=== PATIENT | male | born 1960 | race Two or more races ===

== ENCOUNTER 2024-08-02 12:16 | Emergency (ER) | payer OTHER, SELFPAY ==
[2024-08-02 12:21] VITALS: BP 210/100; PULSE 112; TEMP 36.8; O2SAT 95; BMI 30.4
--- NOTE | 2024-08-02 12:24 | CT_ITS ---
The [address] [address] Patient Name: GISELE SON MRN: [facility]:[id number] date: 1960 Sex: M Assigned Patient Location: ER Current Patient Location: ED.MAIN Accession/Order Number: [id number] Exam Date: 08/02/2024 13:04 Report Date: 08/02/2024 14:00 At the request of: KEILA DAVISON Procedure: CT head/brain wo con EXAMINATION: CT head/brain wo con HISTORY: head injury COMPARISON: None. TECHNIQUE: CT head without intravenous contrast. Dose reduction techniques were achieved by using: automated exposure control and/or adjustment of mA and /or kV according to patient size and/or use of iterative reconstruction technique. FINDINGS: The ventricles and sulci are within normal limits in size and configuration for age. There is no evidence for acute intracranial hemorrhage. There are no foci of abnormal parenchymal attenuation. There is no mass effect or midline shift. There are no abnormal extraaxial fluid collections. Left posterior scalp laceration and soft tissue hematoma. CT/CT head/brain wo con IMPRESSION: Negative for acute intracranial hemorrhage or acute intracranial process. Left posterior scalp soft tissue hematoma and laceration. Electronically authenticated by: EMILY ADAMS Date: 08/02/2024 14:00
--- NOTE | 2024-08-02 12:25 | ED.GENADUL1 ---
HPI HPI - General Adult General Chief complaint: Wound/Laceration Stated complaint: FALL HEAD INJURY Time Seen by Provider: 08/02/24 12:22 Mode of arrival: walk-in History of Present Illness HPI narrative: 63-year-old male presents to the emergency department for an injury to his head. He slipped on ice and fell backwards hitting the back of his head and he sustained a laceration. This happened about an hour and a half ago. No LOC or vomiting and no neck pain. No other injury was sustained. He has had a tetanus shot within the last 10 years. Related Data Home Medications ?Medication ?Instructions ?Recorded ?Confirmed lisinopril 10 mg tablet 10 mg PO DAILY 08/02/24 08/02/24 Allergies Allergy/AdvReac Type Severity Reaction Status Date / Time No Known Drug Allergies Allergy Verified 08/02/24 12:21 Opioid HPI Opioid Management Most Recent Opioid Data: No Data to Display Review of Systems ROS Narrative A ten point review of systems is negative except as noted above. PFSH PFSH Social History Little interest or pleasure in doing things: not at all Feeling down, depressed, or hopeless: not at all Exam Narrative Exam Narrative: Nurses note and vital signs reviewed and patient is not hypoxic. General: The patient appears in no apparent distress. Patient is resting comfortably on cart. Skin: Warm, dry, no pallor noted. There is no rash noted. Head: Normocephalic, dried blood present on the back of his head. He has a curved laceration 2 centimeters in length on the occiput with small hematoma. No active bleeding. Cervical spine nontender. Eye: Normal conjunctiva, no drainage Ears, Nose, Mouth, and Throat: oral mucosa is moist. Nares patent. Cardiovascular: Regular Rate and Rhythm Respiratory: Patient is in no distress, no accessory muscle use, lungs are clear to auscultation, no wheezing, rales or rhonchi Back: non-tender GI: Soft and non- Musculoskeletal: All joints have full range of motion, he is ambulatory Neurological: A&O, normal speech Psychiatric: Cooperative Constitutional Vital Signs, click to edit/add: Last Vital Signs Temp 98.2 F 08/02/24 12:21 Pulse 112 H 08/02/24 12:21 Resp 20 08/02/24 12:21 BP 200/100 H 08/02/24 13:18 Pulse Ox 95 08/02/24 12:21 O2 Del Method Room Air 08/02/24 12:21 Course Vital Signs Vital signs: Vital Signs Temperature 98.2 F 08/02/24 12:21 Pulse Rate 112 H 08/02/24 12:21 Respiratory Rate 20 08/02/24 12:21 Blood Pressure 210/100 H 08/02/24 12:21 Pulse Oximetry 95 08/02/24 12:21 Oxygen Delivery Method Room Air 08/02/24 12:21 Temperature 98.2 F 08/02/24 12:21 Pulse Rate 112 H 08/02/24 12:21 Respiratory Rate 20 08/02/24 12:21 Blood Pressure 200/100 H 08/02/24 13:18 Pulse Oximetry 95 08/02/24 12:21 Oxygen Delivery Method Room Air 08/02/24 12:21 Medical Decision Making MDM Narrative Medical decision making narrative: The following procedure was performed by me after topical anesthetic had been applied to his laceration. Area was cleansed with Betadine x 3 and closed with 3 jennifer. He tolerated procedure well and this resulted in good skin reapproximation. CT is negative and his tetanus status is already up-to-date. He is discharged home. Jennifer to be removed in 10 days. Treatment diagnosis and follow-up were discussed with the patient. Differential Diagnosis Differential Diagnosis: Scalp duration, hematoma, skull fracture, intracranial Imaging Data CT scan - head: Radiologist's impression: ITS Impressions Head CT 08/02/24 12:24 IMPRESSION: Negative for acute intracranial hemorrhage or acute intracranial process. Left posterior scalp soft tissue hematoma and laceration. Electronically authenticated by: EMILY ADAMS Date: 08/02/2024 14:00 Discharge Plan Discharge Chief Complaint: Wound/Laceration Clinical Impression: Laceration of scalp Patient Disposition: Home, Self-Care Time of Disposition Decision: 14:00 Condition: Good Mode of Transportation: Private Vehicle Prescriptions / Home Meds: No Action lisinopril 10 mg tablet 10 mg PO DAILY Print Language: [place] Citizen Instructions: [facility] (ED) Additional Instructions: [place] to be removed in 10 days. Referrals: Physician,Non-Staff, MD [Primary Care Provider] - 1 week
--- NOTE | 2024-08-02 12:30 | ECG_ITS ---
The [facility] Test Date: 2024-08-02 Pat Name: GISELE SON Department: Room: - Gender: Male Metal [employer]: : 1960 Requested By: Order Number: [id number] Reading MD: HUMA RAMOS Measurements Intervals [place] Rate: 108 P: 61 TX: 130 QRS: 42 QRSD: 90 T: 38 QT: 330 QTc: 393 Interpretive Statements 1120 Sinus tachycardia 2420 RSR (QR) in lead V1/V2, consistent with right ventricular conduction delay 8102 Low QRS voltage in chest leads 9150 abnormal ECG No previous ECG available for comparison Electronically Signed On 08-02-2024 14:35:26 EST by HUMA RAMOS
[2024-08-02 13:18] VITALS: BP 200/100
[2024-08-02 13:20] VITALS: PULSE 58
[2024-08-02] MEDS: LIDOCAINE/EPINEPHRINE/TETRACAINE 3 ML GEL.PF.APP TOPICAL (13:22)
== END 2024-08-02 14:19 | disposition home or self-care (01) ==
PROVIDERS: Emergency Provider Emergency Medicine
DX: S01.01XA Laceration without foreign body of scalp, initial encounter (principal); W00.0XXA Fall on same level due to ice and snow, initial encounter
CPT/HCPCS: 12001; 70450; 93005; 99284